=== PATIENT | male | born 1975 | race Caucasian/White ===

== ENCOUNTER 2024-04-03 07:01 | Day surgery (SDC) | payer BC ==
[~2024-04-03 07:01] MED LIST: Lactated Ringers 1,000 ML IV SCH
[2024-04-03] MEDS: Lactated Ringers 1,000 ML IV SCH (07:17)
[2024-04-03] MEDS ORDERED: Propofol 200 MG/20 ML SDV ONE (08:13)
[2024-04-03] MEDS ORDERED: fentaNYL 100 MCG/2 ML SDV ONE (08:14)
== END 2024-04-03 10:30 | disposition home or self-care (01) ==
LOC: VM.SDS 07:01
PROVIDERS: ATTEND Family Medicine
DX: D12.0 Benign neoplasm of cecum (principal); D12.6 Benign neoplasm of colon, unspecified; E10.9 Type 1 diabetes mellitus without complications; M81.0 Age-related osteoporosis without current pathological fracture; Z79.899 Other long term (current) drug therapy
CPT/HCPCS: 00811; 82947; J2704; J3010; J7120